=== PATIENT | female | born 1935 | race Caucasian/White ===

== ENCOUNTER 2018-11-24 14:56 | Inpatient (IN) | payer OTHER, MEDICARE | END 2018-11-27 19:30 | disposition home or self-care (01) | LOC: EDH 14:56 → EDHIP 18:00 → 3CH 21:18 ==

== ENCOUNTER 2018-12-11 15:36 | Inpatient (IN) | payer OTHER ==
[~2018-12-11] VITALS: Ht 154.9 cm; Wt 48.5 kg
[~2018-12-11 15:36] MED LIST: LEVO100T12 PO; METR500T PO; VANC125C5 PO
[2018-12-11 16:08] LABS: EOSINOPHILS % (AUTO) 1.2 % (0.0-8.0); HEMATOCRIT 42.2 % (36-48); LYMPHOCYTES % (AUTO) 14.1 % (21.0-51.0); MEAN CORPUSCULAR HEMOGLOBIN 34.8 pg (27.0-33.0); MEAN CORPUSCULAR HGB CONC 34.5 g/dL (32.0-36.0); MEAN CORPUSCULAR VOLUME 100.7 fL (79-99); NEUTROPHILS % (AUTO) 68.7 % (40.0-77.0); NUCLEATED RED BLOOD CELLS 0.1 % (0.0-0.19); PLATELET COUNT (AUTO) 270 K/uL (130-400); RED CELL DISTRIBUTION WIDTH 13.1 % (11.0-15.5); WHITE BLOOD COUNT (AUTO) 8.5 K/uL (4.8-10.8)
[2018-12-11 16:21] LABS: INR 1.06 (0.85-1.15); PARTIAL THROMBOPLASTIN TIME 26.4 SEC (26.3-35.5); PROTHROMBIN TIME 11.1 SEC (9.6-11.6)
[2018-12-11 16:24] LABS: ALBUMIN 3.1 g/dL (3.5-5.0); BILIRUBIN,TOTAL 0.9 mg/dL (0.2-1.0); CREATININE 0.8 mg/dL (0.5-1.5)
[2018-12-11 16:29] LABS: TROPONIN I 0.28 ng/mL (0.00-0.06)
[2018-12-11 16:33] LABS: POTASSIUM 2.3 mmol/L (3.5-5.1)
[2018-12-11] MEDS ORDERED: SODIUM CHLORIDE 0.9% 1000ML 1,000 ML IV ONE (16:57)
[2018-12-11] MEDS ORDERED: POTASSIUM CHLORIDE 20MEQ/100ML 100 ML IV ONE ×2 (18:18→23:30)
[2018-12-12] MEDS ORDERED: MORPHINE SULFATE 2 MG/ML 1ML SYG IV PRN (00:45)
[2018-12-12] MEDS ORDERED: ACETAMINOPHEN 325 MG TAB PO PRN (00:45)
[2018-12-12] MEDS ORDERED: ONDANSETRON HCL 4 MG/2 ML VIAL IV PRN (00:45)
[2018-12-12 02:30] VITALS: BP 158/75
[2018-12-12] MEDS ORDERED: LABE200T5 PO (03:19)
[2018-12-12] MEDS ORDERED: FLUC200T8 PO (03:19)
[2018-12-12] MEDS ORDERED: AMLO5TAB9 PO (03:19)
[2018-12-12] MEDS ORDERED: LEVO100 PO (03:19)
[2018-12-12] MEDS ORDERED: BENA20TA10 PO (03:19)
[2018-12-12 03:25] VITALS: BP 136/79
[2018-12-12] MEDS: NITROGLYCERIN 1GM/1 INCH PACKET TD SCH ×3 (04:21→17:47)
[2018-12-12 04:29] LABS: BASOPHILS % (AUTO) 0.5 % (0.0-5.0); EOSINOPHILS % (AUTO) 1.2 % (0.0-8.0); HEMATOCRIT 36.8 % (36-48); LYMPHOCYTES % (AUTO) 10.7 % (21.0-51.0); MEAN CORPUSCULAR HGB CONC 34.8 g/dL (32.0-36.0); MEAN CORPUSCULAR VOLUME 100.7 fL (79-99); MONOCYTES % (AUTO) 11.5 % (3.0-13.0); NEUTROPHILS % (AUTO) 76.1 % (40.0-77.0); PLATELET COUNT (AUTO) 223 K/uL (130-400); RED BLOOD CELL COUNT(AUTO) 3.65 MIL/uL (4.00-5.50); RED CELL DISTRIBUTION WIDTH 13.2 % (11.0-15.5); WHITE BLOOD COUNT (AUTO) 7.6 K/uL (4.8-10.8)
[2018-12-12 04:49] LABS: CHOLESTEROL 185 mg/dL (<200); HDL CHOLESTEROL 48 mg/dL (35-85); LDL DIRECT 111 mg/dL (0-99); TRIGLYCERIDES 89 mg/dL (30-200)
[2018-12-12] MEDS ORDERED: LIDOCAINE HCL-MPF 1% 2ML VIAL IVP PRN ×2 (05:45)
[2018-12-12] MEDS ORDERED: POTASSIUM CHLORIDE 20MEQ/100ML 100 ML IV PRN ×2 (05:45)
[2018-12-12] MEDS ORDERED: POTASSIUM CHLORIDE 20 MEQ ERTAB PO PRN (05:45)
[2018-12-12] MEDS ORDERED: LEVOTHYROXINE 100 MCG TABLET ONE (06:14)
[2018-12-12] MEDS: LEVOTHYROXINE 100 MCG TABLET PO SCH ×2 (06:17→08:41)
[2018-12-12] MEDS: NS-20 MEQ KCL 1000ML 1,000 ML IV SCH (08:53)
[2018-12-12] MEDS: AMLODIPINE BESYLATE 5 MG TAB PO SCH (08:54)
[2018-12-12] MEDS: FLUCONAZOLE 100 MG TAB PO SCH (08:54)
[2018-12-12] MEDS: ASPIRIN 325 MG TABLET PO SCH (08:54)
[2018-12-12] MEDS: LABETALOL HCL 200 MG TABLET PO SCH ×2 (08:55→21:00)
[2018-12-12] MEDS: HYDROCORTISONE 1% 28.35 GM CREAM TP SCH ×2 (08:56→21:41)
[2018-12-12] MEDS ORDERED: BENAZEPRIL HCL 10 MG TABLET PO SCH (09:00)
[2018-12-12 09:21] VITALS: BP 136/85
[2018-12-12 11:29] LABS: CREATININE 0.6 mg/dL (0.5-1.5)
[2018-12-12 11:32] LABS: POTASSIUM 2.9 mmol/L (3.5-5.1)
[2018-12-12 12:02] VITALS: BP 119/63
[2018-12-12] MEDS: MAGNESIUM 2GM PREMIX 50ML 50 ML IV PRN (12:27)
[2018-12-12] MEDS: POTASSIUM CHLORIDE 10% ELIXIR 20 MEQ/15 ML UDCUP PO PRN ×4 (12:28→21:40)
[2018-12-12] MEDS: METRONIDAZOLE 500MG/100ML BAG 100 ML IV SCH ×2 (14:55→21:40)
--- NOTE | 2018-12-12 15:49 | NUR ---
CM NOTE met with patient and with daughter Becky Mayberry and son stephania. pt states resides at home alone. uses [facility]er and w/c has [facility] in place. but has been weak due to illness. discussed snf level of care with pt and family. son and daughter state they wish for snf either at replaced by [facility] or [employer]. and information on predatory animal exterminator assist. per pt states she will think about it and let cm know of her decision. provided pt and family list of sitter services private pay and also private pay homes available. per daughter she is unable to stay with pt at this time at home prefers snf. updated md. new orders received.
[2018-12-12] MEDS: NYSTATIN 100000 UNIT/ML 5ML UDCUP PO SCH ×2 (16:00→21:40)
[2018-12-12 17:02] VITALS: BP 102/61
[2018-12-12] MEDS: NYSTATIN 15 GM POWDER TP SCH ×2 (17:47→21:41)
[2018-12-12 20:16] VITALS: BP 106/67
[2018-12-12] MEDS: BENAZEPRIL HCL 10 MG TABLET PO SCH (21:00)
[2018-12-13 00:09] VITALS: BP 112/59
[2018-12-13] MEDS: NITROGLYCERIN 1GM/1 INCH PACKET TD SCH ×3 (00:10→17:21)
[2018-12-13] MEDS: NS-20 MEQ KCL 1000ML 1,000 ML IV SCH (00:14)
[2018-12-13 04:00] VITALS: BP 119/69
[2018-12-13 05:26] LABS: HEMATOCRIT 33.8 % (36-48); MEAN CORPUSCULAR HEMOGLOBIN 35.1 pg (27.0-33.0); MEAN CORPUSCULAR HGB CONC 34.5 g/dL (32.0-36.0); MEAN CORPUSCULAR VOLUME 101.6 fL (79-99); PLATELET COUNT (AUTO) 212 K/uL (130-400); RED BLOOD CELL COUNT(AUTO) 3.32 MIL/uL (4.00-5.50); RED CELL DISTRIBUTION WIDTH 13.4 % (11.0-15.5)
[2018-12-13] MEDS: LEVOTHYROXINE 100 MCG TABLET PO SCH ×2 (05:28→09:00)
[2018-12-13] MEDS: METRONIDAZOLE 500MG/100ML BAG 100 ML IV SCH ×3 (05:28→21:21)
[2018-12-13 05:48] LABS: CREATININE 0.7 mg/dL (0.5-1.5); POTASSIUM 4.4 mmol/L (3.5-5.1)
[2018-12-13 08:58] VITALS: BP 122/71
[2018-12-13] MEDS: HYDROCORTISONE 1% 28.35 GM CREAM TP SCH ×2 (09:00→21:21)
[2018-12-13] MEDS: LABETALOL HCL 200 MG TABLET PO SCH ×2 (10:32→21:19)
[2018-12-13] MEDS: AMLODIPINE BESYLATE 5 MG TAB PO SCH (10:32)
[2018-12-13] MEDS: FLUCONAZOLE 100 MG TAB PO SCH (10:33)
[2018-12-13] MEDS: ASPIRIN 325 MG TABLET PO SCH (10:33)
[2018-12-13] MEDS: NYSTATIN 100000 UNIT/ML 5ML UDCUP PO SCH ×2 (10:50→17:20)
[2018-12-13 12:07] VITALS: BP 100/69
[2018-12-13] MEDS: MAGNESIUM 2GM PREMIX 50ML 50 ML IV PRN (13:23)
[2018-12-13 17:00] VITALS: BP 100/53
[2018-12-13] MEDS: NYSTATIN 15 GM POWDER TP SCH ×4 (17:22→21:21)
[2018-12-13 19:30] VITALS: BP 110/70
[2018-12-13] MEDS: BENAZEPRIL HCL 10 MG TABLET PO SCH (21:20)
[2018-12-14 00:44] VITALS: BP 97/52
[2018-12-14] MEDS: NITROGLYCERIN 1GM/1 INCH PACKET TD SCH ×3 (01:17→17:07)
[2018-12-14 03:45] VITALS: BP_SYST 117; BP_SYST 97; BP_DIAS 60; BP_DIAS 67
[2018-12-14 05:35] LABS: HEMATOCRIT 34.1 % (36-48); MEAN CORPUSCULAR HEMOGLOBIN 34.7 pg (27.0-33.0); MEAN CORPUSCULAR HGB CONC 34.1 g/dL (32.0-36.0); MEAN CORPUSCULAR VOLUME 101.8 fL (79-99); PLATELET COUNT (AUTO) 209 K/uL (130-400); RED BLOOD CELL COUNT(AUTO) 3.35 MIL/uL (4.00-5.50); RED CELL DISTRIBUTION WIDTH 13.2 % (11.0-15.5); WHITE BLOOD COUNT (AUTO) 4.6 K/uL (4.8-10.8)
[2018-12-14 05:37] LABS: CREATININE 0.6 mg/dL (0.5-1.5); MAGNESIUM 1.7 mg/dL (1.80-2.40); POTASSIUM 3.9 mmol/L (3.5-5.1)
[2018-12-14] MEDS: METRONIDAZOLE 500MG/100ML BAG 100 ML IV SCH ×3 (06:15→21:38)
[2018-12-14] MEDS: LEVOTHYROXINE 100 MCG TABLET PO SCH ×2 (06:15)
[2018-12-14 08:00] VITALS: BP 115/63
[2018-12-14] MEDS: NYSTATIN 100000 UNIT/ML 5ML UDCUP PO SCH ×4 (08:00→21:45)
[2018-12-14] MEDS: NYSTATIN 15 GM POWDER TP SCH ×4 (09:18→21:45)
[2018-12-14] MEDS: HYDROCORTISONE 1% 28.35 GM CREAM TP SCH ×2 (09:18→21:45)
[2018-12-14] MEDS: MAGNESIUM 2GM PREMIX 50ML 50 ML IV PRN (09:19)
[2018-12-14] MEDS: LABETALOL HCL 200 MG TABLET PO SCH ×2 (09:19→21:39)
[2018-12-14] MEDS: ASPIRIN 325 MG TABLET PO SCH (09:19)
[2018-12-14] MEDS: FLUCONAZOLE 100 MG TAB PO SCH (09:19)
[2018-12-14] MEDS: AMLODIPINE BESYLATE 5 MG TAB PO SCH (09:20)
[2018-12-14 11:00] VITALS: BP 130/74
[2018-12-14] MEDS: CLOTRIMAZOLE 10 MG TROCHE MM SCH ×3 (13:32→21:39)
[2018-12-14] MEDS: LACTOBACILLUS RHAMNOSUS GG 1 EACH CAP.SPRINK PO SCH (13:32)
--- NOTE | 2018-12-14 14:30 | NUR ---
REFERRAL TO [facility] PER PTS CHOICE
[2018-12-14 16:00] VITALS: BP 124/69
[2018-12-14 20:53] VITALS: BP 121/66
[2018-12-14] MEDS: BENAZEPRIL HCL 10 MG TABLET PO SCH (21:39)
[2018-12-15 00:23] VITALS: BP 98/57
[2018-12-15] MEDS: NITROGLYCERIN 1GM/1 INCH PACKET TD SCH ×3 (01:44→16:45)
[2018-12-15 04:37] VITALS: BP 120/65
[2018-12-15 05:12] LABS: BASOPHILS % (AUTO) 1.4 % (0.0-5.0); EOSINOPHILS % (AUTO) 6.1 % (0.0-8.0); LYMPHOCYTES % (AUTO) 20.4 % (21.0-51.0); MEAN CORPUSCULAR HEMOGLOBIN 35.1 pg (27.0-33.0); MEAN CORPUSCULAR HGB CONC 34.6 g/dL (32.0-36.0); MEAN CORPUSCULAR VOLUME 101.3 fL (79-99); MONOCYTES % (AUTO) 17.3 % (3.0-13.0); NEUTROPHILS % (AUTO) 54.8 % (40.0-77.0); PLATELET COUNT (AUTO) 195 K/uL (130-400); RED BLOOD CELL COUNT(AUTO) 3.35 MIL/uL (4.00-5.50); RED CELL DISTRIBUTION WIDTH 13.2 % (11.0-15.5); WHITE BLOOD COUNT (AUTO) 4.2 K/uL (4.8-10.8)
[2018-12-15 05:24] LABS: CREATININE 0.6 mg/dL (0.5-1.5); MAGNESIUM 1.6 mg/dL (1.80-2.40); POTASSIUM 3.6 mmol/L (3.5-5.1)
[2018-12-15] MEDS: METRONIDAZOLE 500MG/100ML BAG 100 ML IV SCH ×2 (05:49→14:16)
[2018-12-15] MEDS: LEVOTHYROXINE 100 MCG TABLET PO SCH ×2 (05:49→05:50)
[2018-12-15 08:00] VITALS: BP 122/66
[2018-12-15] MEDS: NYSTATIN 100000 UNIT/ML 5ML UDCUP PO SCH ×2 (08:00→16:00)
[2018-12-15] MEDS: NYSTATIN 15 GM POWDER TP SCH ×3 (09:00→17:00)
[2018-12-15] MEDS: CLOTRIMAZOLE 10 MG TROCHE MM SCH ×3 (09:00→17:00)
[2018-12-15] MEDS: HYDROCORTISONE 1% 28.35 GM CREAM TP SCH (09:00)
[2018-12-15] MEDS: ASPIRIN 325 MG TABLET PO SCH (10:13)
[2018-12-15] MEDS: FLUCONAZOLE 100 MG TAB PO SCH (10:13)
[2018-12-15] MEDS: LABETALOL HCL 200 MG TABLET PO SCH (10:13)
[2018-12-15] MEDS: AMLODIPINE BESYLATE 5 MG TAB PO SCH (10:13)
[2018-12-15 12:00] VITALS: BP 115/67
[2018-12-15] MEDS: LACTOBACILLUS RHAMNOSUS GG 1 EACH CAP.SPRINK PO SCH (12:00)
[2018-12-15 16:00] VITALS: BP 108/57
== END 2018-12-15 19:10 | DRG 392 ==
LOC: EDH 15:36 → OBSVTOIN 12-12 00:15 → EDHIP 12-12 00:15 → 4CH 12-12 02:06
PROVIDERS: ADMIT Internal Medicine; ATTEND Internal Medicine
DX: K52.9 Noninfective gastroenteritis and colitis, unspecified (principal); E44.0 Moderate protein-calorie malnutrition; B37.0 Candidal stomatitis; I10 Essential (primary) hypertension; E03.9 Hypothyroidism, unspecified; E87.6 Hypokalemia; M19.90 Unspecified osteoarthritis, unspecified site; E83.42 Hypomagnesemia; Z96.649 Presence of unspecified artificial hip joint; Z88.8 Allergy status to other drugs, medicaments and biological substances; Z68.20 Body mass index [BMI] 20.0-20.9, adult
CPT/HCPCS: 36415; 80048; 80053; 80061; 82270; 82550; 83735; 83874; 84132; 84484; 85025; 85027; 85610; 85730; 87324; 93005; 97039; G0378; J3475; J3480; J3490; J7030